=== PATIENT | female | born 1985 | race Caucasian/White ===

== ENCOUNTER → 2017-05-16 | Outpatient (CLI) | payer OTHER ==
[~2017-05-16] MED LIST: PRENTAB26 PO
--- NOTE | 2017-05-16 13:46 | DIAGNOSTIC IMAGING REPORT ---
CHEST 2 VIEWS ROUTINE CLINICAL HISTORY: Fever. Cough. COMPARISON STUDY: No previous studies for comparison. FINDINGS: Lung volumes are normal. There is mild consolidation within the right upper lobe, likely within the anterior segment of the right upper lobe. There is no cavitation or pleural effusion. Cardiomediastinal silhouette is normal. Pulmonary vascularity is normal. IMPRESSION: Small focus of consolidation within the right upper lobe suggestive of pneumonia. Post radiographs to ensure resolution are recommended. Electronically signed by: Carlos Eduardo Caballero M.D. 05/16/2017 1:45 PM Dictated Date/Time: 05/16/2017 1:44 PM
== END | disposition home or self-care (01) ==
LOC: C.RAD 12:38
PROVIDERS: ATTEND Family Medicine
DX: R05 Cough (principal); R50.9 Fever, unspecified

== ENCOUNTER → 2017-06-25 | Outpatient (CLI) | payer OTHER ==
--- NOTE | 2017-06-25 08:52 | DIAGNOSTIC IMAGING REPORT ---
CHEST 2 VIEWS ROUTINE CLINICAL HISTORY: 32 years-old Female presenting with J18.1 right lower lobe pneumonia. TECHNIQUE: PA and lateral views of the chest were obtained. COMPARISON: 05/16/2017. FINDINGS: Cardiomediastinal silhouette normal. Interval clearance of the right upper lobe opacity. No new focal opacity. No pleural effusion or pneumothorax. Osseous structures normal. Upper abdomen normal. IMPRESSION: 1. Resolution of right upper lobe pneumonia. No acute cardiopulmonary disease. Electronically signed by: Austin Huang M.D. 06/25/2017 8:50 AM Dictated Date/Time: 06/25/2017 8:50 AM
== END | disposition home or self-care (01) ==
LOC: C.RAD1850 08:28
PROVIDERS: ATTEND Family Medicine
DX: J18.1 Lobar pneumonia, unspecified organism (principal)